=== PATIENT | male | born 1980 | race Caucasian/White ===

== ENCOUNTER 2022-09-14 06:02 | Emergency (ER) | payer OTHER ==
[2022-09-14 06:40] VITALS: RESP 18; BMI 30.3
[2022-09-14] MEDS ORDERED: IBUPROFEN 600 MG TABLET (FP) PO ONE ×2 (06:48→06:54)
[2022-09-14] MEDS ORDERED: DEXAMETHASONE 4 MG TABLET (FP) PO ONE (07:32)
[2022-09-14] MEDS ORDERED: DEXAMETHASONE 4 MG TABLET (FP) ONE (07:34)
[2022-09-14 07:42] LABS: THROAT:GRP A STREP NOT DETECTED (NOTDETECTED)
[2022-09-14 08:31] VITALS: BP 133/75; PULSE 65; TEMP 98.4
== END 2022-09-14 08:30 | disposition home or self-care (01) ==
LOC: JER 06:02
DX: R07.0 Pain in throat (principal); J00 Acute nasopharyngitis [common cold]; R63.8 Other symptoms and signs concerning food and fluid intake; Z20.822 Contact with and (suspected) exposure to COVID-19
CPT/HCPCS: 0241U-QW; 87651; 99283-25